=== PATIENT | female | born 1965 | race Caucasian/White ===

== ENCOUNTER 2018-12-11 19:05 | Emergency (ER) | payer SELFPAY ==
[~2018-12-11] VITALS: Wt 75.6 kg
[2018-12-11 19:08] VITALS: BP 211/95; PULSE 86; RESP 18
== END 2018-12-11 23:48 | disposition left against medical advice (07) ==
LOC: E/R 19:05
DX: Z53.21 Procedure and treatment not carried out due to patient leaving prior to being seen by health care provider (principal)